=== PATIENT | male | born 1940 | race Caucasian/White ===

== ENCOUNTER 2019-07-12 09:57 | Emergency (ER) | payer MEDICARE, BC ==
[~2019-07-12] VITALS: Ht 175.3 cm; Wt 70.5 kg
[~2019-07-12 09:57] MED LIST: ASPIRIN 81M81 MG/TA2 PO; PLAVIX 75MG TAB75 MG PO; ZOCOR 40MG40 MG PO
[2019-07-12 10:11] VITALS: PULSE 83; TEMP 97.5
[2019-07-12 11:21] LABS: BASO % 0.4 % (0.0-2.0); EOS # 0.1 (0.0-0.7); GRAN # 4.9 (1.4-6.5); GRAN % 66.9 % (42.2-75.2); HEMATOCRIT 49.8 % (42.0-52.0); LYMPH # 1.5 (1.2-3.4); LYMPH % 20.9 % (20.0-51.0); MEAN CELL VOLUME 97 fl (80.0-100.0); MEAN CORPUSCULAR HEMOGLOBIN 33 pg (27.0-31.0); MEAN CORPUSCULAR HGB CONC 34 g/dl (33.0-37.0); MONO # 0.8 (0.1-0.6); MONO % 10.4 % (1.7-9.3); PLATELET COUNT 142 K/mm3 (130-400); RED BLOOD COUNT 5.14 M/mm3 (4.20-5.60)
[2019-07-12 11:27] LABS: INR 0.9 (0.8-3.0); PROTHROMBIN TIME 10.6 SECONDS (9.7-12.8)
[2019-07-12 11:28] LABS: ALANINE AMINOTRANSFERASE 12 U/L (21-72); ALBUMIN 4.1 gm/dL (3.5-5.0); ALKALINE PHOSPHATASE 50 U/L (50-136); ANION GAP 7 mmol/L (7-16); AST,SGOT 26 U/L (15-37); BILIRUBIN,TOTAL 2.6 mg/dL (0.0-1.0); BLOOD UREA NITROGEN 18 mg/dL (9-20); CALCIUM 8.9 mg/dL (8.4-10.2); CARBON DIOXIDE 26 mmol/L (22-30); CHLORIDE 105 mmol/L (98-107); CREATININE, serum 0.97 (0.66-1.25); GLUCOSE 101 mg/dL (74-106); POTASSIUM 4.3 mmol/L (3.4-5.0); SODIUM 139 mmol/L (137-145); TOTAL PROTEIN 6.9 gm/dL (6.4-8.2)
[2019-07-12 11:40] LABS: TROPONIN-I < 0.012 ng/mL (0.000-0.035)
[2019-07-12 12:20] VITALS: BP 151/92
== END 2019-07-12 12:20 | disposition home or self-care (01) ==
LOC: COL.ER 09:57
PROVIDERS: Family Medicine
DX: R53.1 Weakness (principal)

== ENCOUNTER 2022-07-05 07:43 | Emergency (ER) | payer MEDICARE, BC ==
[~2022-07-05] VITALS: Ht 175.3 cm; Wt 72.7 kg
[2022-07-05 08:44] LABS: STREP SCREEN NEGATIVE
[2022-07-05 10:20] VITALS: BP 124/51; PULSE 60; TEMP 98.3
== END 2022-07-05 10:20 | disposition home or self-care (01) ==
LOC: COL.ER 07:43
PROVIDERS: Family Medicine
DX: U07.1 COVID-19 (principal); I44.1 Atrioventricular block, second degree
CPT/HCPCS: Q0222